=== PATIENT | male | born 2000 | race Caucasian/White ===

== ENCOUNTER 2024-02-02 14:26 | Emergency (ER) | payer MEDICAID ==
[~2024-02-02] VITALS: Ht 172.7 cm; Wt 78.0 kg
[2024-02-02] MEDS: KETOROLAC 30MG/ML VIAL IM ONE (17:15)
[2024-02-02] MEDS: SODIUM CHLORIDE 0.9% 1,000 ML IV ONE (17:26)
[2024-02-02] MEDS: KETAMINE HCL 50 MG/ML 10ML IV ONE (17:27)
[2024-02-02] MEDS: PROPOFOL 200MG/20ML VIAL IV ONE (18:03)
[2024-02-02 18:05] VITALS: O2SAT 99
[2024-02-02] MEDS ORDERED: NAPR-679 MT (18:06)
[2024-02-02 18:55] VITALS: BP 154/98; PULSE 87; RESP 19; TEMP 36.72516; O2SAT 97
== END 2024-02-02 19:49 | disposition home or self-care (01) ==
LOC: ER 14:38
DX: S43.024A Posterior dislocation of right humerus, initial encounter (principal); F19.90 Other psychoactive substance use, unspecified, uncomplicated; Y04.0XXA Assault by unarmed brawl or fight, initial encounter; Y93.89 Activity, other specified; Y92.89 Other specified places as the place of occurrence of the external cause; Y99.8 Other external cause status
CPT/HCPCS: 73030; 23650; 96360; 99152; 99291; J3490; J2704; J7030; Z7610 ×4; A4565